=== PATIENT | female | born 1975 | race Caucasian/White ===

== ENCOUNTER 2017-05-14 09:41 | Emergency (ER) | payer MEDICAID ==
[2017-05-14] MEDS: IBUPROFEN 800 MG TAB PO (11:00)
== END 2017-05-14 11:45 | disposition home or self-care (01) ==
LOC: FTE 09:41
DX: J01.10 Acute frontal sinusitis, unspecified (principal)
CPT/HCPCS: 99283; Z7502

== ENCOUNTER 2017-05-26 00:09 | Emergency (ER) | payer MEDICAID ==
[2017-05-26] MEDS: IPRATROPIUM (NEB) 0.5 MG/2.5 ML AMP HHN (01:51)
[2017-05-26] MEDS: ALBUTEROL 0.083% (NEB) 2.5 MG/3 ML AMP HHN (01:52)
[2017-05-26] MEDS: DEXAMETHASONE 10 MG/ML 1 ML INJ IM (01:53)
== END 2017-05-26 03:57 | disposition home or self-care (01) ==
LOC: FTE 00:09
DX: J20.9 Acute bronchitis, unspecified (principal); R00.2 Palpitations
CPT/HCPCS: 71045; 93005; 94644; 96372; 99284-25

== ENCOUNTER 2017-07-26 19:05 | Emergency (ER) | payer MEDICAID ==
[2017-07-26] MEDS: KETOROLAC 60 MG INJ IM ×2 (21:32→21:41)
[2017-07-26] MEDS: IBUPROFEN 600 MG TAB PO (21:47)
[2017-07-26 23:17] LABS: URINE PH (Dip) POC 5.5 (5.0-8.5)
[2017-07-26 23:17] LABS: URINE BLOOD (Dip) POC 2+ (NEGATIVE); URINE GLUCOSE (Dip) POC Negative (NEGATIVE); URINE KETONES (Dip) POC Negative (NEGATIVE); URINE LEUKOCYTE EST (Dip) POC Negative (NEGATIVE); URINE NITRITE (Dip) POC Negative (NEGATIVE); URINE TOTAL PROTEIN POC Negative (NEGATIVE)
== END 2017-07-27 02:00 | disposition left against medical advice (07) ==
LOC: FTE 07-27 02:00
DX: M54.9 Dorsalgia, unspecified (principal)
CPT/HCPCS: 81003; 81025; 96372; 99284-25

== ENCOUNTER 2017-07-29 11:04 | Emergency (ER) | payer MEDICAID ==
[2017-07-29 15:53] LABS: URINE BLOOD (Dip) POC 1+ (NEGATIVE); URINE GLUCOSE (Dip) POC Negative (NEGATIVE); URINE KETONES (Dip) POC Negative (NEGATIVE); URINE LEUKOCYTE EST (Dip) POC Negative (NEGATIVE); URINE NITRITE (Dip) POC Negative (NEGATIVE); URINE TOTAL PROTEIN POC Negative (NEGATIVE)
[2017-07-29] MEDS ORDERED: DIAZEPAM 5 MG TAB PO (16:00)
[2017-07-29] MEDS: DIAZEPAM 5 MG TAB PO (16:06)
[2017-07-29] MEDS: KETOROLAC 30 MG INJ IM (16:07)
== END 2017-07-29 17:20 | disposition home or self-care (01) ==
LOC: FTE 11:04
DX: M54.5 Low back pain (principal)
CPT/HCPCS: 81003; 81025; 96372; 99284-25

== ENCOUNTER 2017-07-31 20:43 | Emergency (ER) | payer MEDICAID ==
[2017-07-31 22:22] LABS: URINE PH (Dip) POC 5.5 (5.0-8.5)
[2017-07-31 22:22] LABS: URINE BLOOD (Dip) POC 1+ (NEGATIVE); URINE GLUCOSE (Dip) POC Negative (NEGATIVE); URINE KETONES (Dip) POC Trace (NEGATIVE); URINE LEUKOCYTE EST (Dip) POC Negative (NEGATIVE); URINE NITRITE (Dip) POC Negative (NEGATIVE); URINE TOTAL PROTEIN POC Negative (NEGATIVE)
[2017-07-31] MEDS: KETOROLAC 60 MG INJ IM (22:42)
== END 2017-07-31 23:55 | disposition home or self-care (01) ==
LOC: FTE 23:55
DX: M51.37 Other intervertebral disc degeneration, lumbosacral region (principal)
CPT/HCPCS: 72131; 81003; 81025; 96372; 99285-25

== ENCOUNTER 2017-08-11 03:54 | Emergency (ER) | payer MEDICAID ==
[2017-08-11] MEDS: KETOROLAC 15 MG INJ IM (06:32)
== END 2017-08-11 07:01 | disposition home or self-care (01) ==
LOC: FTE 03:54
DX: M54.6 Pain in thoracic spine (principal)
CPT/HCPCS: 96372; 99284-25

== ENCOUNTER 2017-09-04 15:54 | Emergency (ER) | payer MEDICAID | END 2017-09-04 17:21 | disposition home or self-care (01) | LOC: E/R 15:54 | DX: S91.031A Puncture wound without foreign body, right ankle, initial encounter (principal); W55.01XA Bitten by cat, initial encounter; Y92.9 Unspecified place or not applicable | CPT/HCPCS: 99282 ==

== ENCOUNTER 2017-09-16 19:18 | Emergency (ER) | payer SELFPAY, OTHER, MEDICAID ==
[2017-09-16] MEDS: KETOROLAC 60 MG INJ IM (22:00)
== END 2017-09-17 00:15 | disposition left against medical advice (07) ==
LOC: FTE 09-17 00:15
DX: R51 Headache (principal)
CPT/HCPCS: 70450; 81025; 96372; 99285-25

== ENCOUNTER 2018-09-14 02:14 | Emergency (ER) | payer SELFPAY ==
[2018-09-14] MEDS: ONDANSETRON (ODT) 4 MG TAB ODT (03:57)
[2018-09-14] MEDS: HYDROCODONE/APAP (5/325) TAB PO (03:57)
[2018-09-14] MEDS: KETOROLAC 30 MG INJ IM (03:57)
== END 2018-09-14 05:33 | disposition home or self-care (01) ==
LOC: FTE 05:33
DX: M54.5 Low back pain (principal)
CPT/HCPCS: 72100; 81025; 96372; 99284-25

== ENCOUNTER 2018-10-19 14:19 | Emergency (ER) | payer SELFPAY ==
[2018-10-19 14:55] LABS: URINE BLOOD (Dip) POC 1+ (NEGATIVE); URINE GLUCOSE (Dip) POC Negative (NEGATIVE); URINE KETONES (Dip) POC Negative (NEGATIVE); URINE LEUKOCYTE EST (Dip) POC Negative (NEGATIVE); URINE NITRITE (Dip) POC Negative (NEGATIVE); URINE TOTAL PROTEIN POC Negative (NEGATIVE)
[2018-10-19] MEDS: predniSONE 20 MG TAB PO (15:01)
[2018-10-19] MEDS: KETOROLAC 60 MG INJ IM (15:02)
== END 2018-10-19 15:40 | disposition home or self-care (01) ==
LOC: FTE 14:19
DX: M54.5 Low back pain (principal)
CPT/HCPCS: 81003; 81025; 96372; 99284-25